=== PATIENT | male | born 1975 | race Caucasian/White ===

== ENCOUNTER 2017-04-21 14:35 | Emergency (ER) | payer SELFPAY ==
[~2017-04-21] VITALS: Ht 177.8 cm; Wt 77.9 kg
[2017-04-21 15:20] LABS: HEMATOCRIT 45.3 % (38.0-50.0); MCH 29.4 PG (29.0-34.0); MCHC 34.4 G/DL (30.0-36.0); MCV 85.5 FL (86-99); MEAN PLAT.VOLUME 10.1 uM^3 (9.0-12.4); PLATELET COUNT 168 K/uL (156-360); RBC DIS.WIDTH-CV 11.7 % (11.8-14.6); RBC DIS.WIDTH-SD 36.3 % (39-53); WHITE BLOOD COUNT 9.3 K/uL (4.1-10.2)
[2017-04-21 15:35] LABS: CHLORIDE 103 mEq/L (99-109); POTASSIUM 4.1 mEq/L (3.7-5.4); SODIUM 139 mEq/L (136-147)
[2017-04-21 15:37] LABS: GLUCOSE 94 mg/dL (70-99)
[2017-04-21 15:38] LABS: ANION GAP 9 MEQ/L (2-14)
[2017-04-21 15:41] LABS: GFR ESTIMATE (CALCULATED) > 59 mL/min/; UREA NITROGEN (BUN) 11 mg/dL (9-23)
[2017-04-21] MEDS ORDERED: KEFLEX500 MG PO (20:53)
[2017-04-21 21:08] VITALS: BP 135/74
== END 2017-04-21 21:10 | disposition home or self-care (01) ==
LOC: EME 14:35
PROC: 0H9EXZZ Drainage of Left Lower Arm Skin, External Approach (ICD-10-PCS; principal; 2017-04-21)
DX: L02.414 Cutaneous abscess of left upper limb (principal); L03.114 Cellulitis of left upper limb
CPT/HCPCS: 80048; 85027; 87070; 87075; 87077; 87147; 87186; 87205; 99281; 99284; J3370; J7030